=== PATIENT | female | born 1980 | race Caucasian/White ===

== ENCOUNTER 2016-11-21 09:57 | Emergency (ER) | payer BC ==
[~2016-11-21] VITALS: Ht 160 cm; Wt 86.0 kg
[2016-11-21 11:43] LABS: HEMATOCRIT 46.5 % (36.0-46.0); MCH 26.6 PG (29.0-34.0); MCHC 31.4 G/DL (30.0-36.0); MCV 84.7 FL (83-99); MEAN PLAT.VOLUME 10.8 uM^3 (9.5-12.4); PLATELET COUNT 324 K/uL (156-360); RBC DIS.WIDTH-CV 12.9 % (11.8-14.6); RBC DIS.WIDTH-SD 39.8 % (39-53); RED BLOOD COUNT 5.49 M/uL (3.80-5.20); WHITE BLOOD COUNT 7.9 K/uL (4.1-10.2)
[2016-11-21 11:55] LABS: CHLORIDE 111 mEq/L (99-109); POTASSIUM 3.6 mEq/L (3.7-5.4); SODIUM 141 mEq/L (136-147)
[2016-11-21 12:00] LABS: GFR ESTIMATE (CALCULATED) > 59 mL/min/
[2016-11-21 12:01] LABS: UREA NITROGEN (BUN) 13 mg/dL (9-23)
[2016-11-21 12:11] LABS: QUANTITATIVE HCG < 4.0 MIU/ML
[2016-11-21 12:14] LABS: ADD MIUA? YES; BILIRUBIN NEGATIVE; BLOOD MODERATE; COLOR YELLOW ((YELLOW)); GLUCOSE (STRIP) NEGATIVE; KETONES NEGATIVE; LEUKOCYTES MODERATE; NITRITE NEGATIVE; PROTEIN (STRIP) NEGATIVE; SPECIFIC GRAVITY 1.021 (1.000-1.030); UROBILINOGEN 0.2 MG/DL (0.2-1.0)
[2016-11-21 12:16] LABS: CREATINE KINASE 82 IU/L (1-294)
[2016-11-21 12:25] LABS: GLUCOSE 86 mg/dL (70-99)
[2016-11-21 12:33] LABS: BACTERIA RARE /HPF; EPITHELIAL CELLS 1+ /HPF; MUCUS 1+ /LPF; WHITE BLOOD CELLS 20-30 /HPF (0-5)
[2016-11-21] MEDS ORDERED: MOTRIN800 MG PO (13:09)
[2016-11-21 13:28] VITALS: BP 141/90
== END 2016-11-21 13:29 | disposition home or self-care (01) ==
LOC: EME 09:57
PROVIDERS: Physician Assistant
DX: N93.9 Abnormal uterine and vaginal bleeding, unspecified (principal); N94.6 Dysmenorrhea, unspecified; I10 Essential (primary) hypertension; Z98.890 Other specified postprocedural states
CPT/HCPCS: 80048; 81003; 82550; 84443; 84702; 85027; 99281; 99283